=== PATIENT | female | born 2000 | race Caucasian/White ===

== ENCOUNTER → 2022-07-27 | Outpatient (CLI) | payer OTHER ==
[2022-07-27 14:54] LABS: BASO # 0.1 10^3/uL (0.0-0.2); BASO % 0.6 % (0.0-1.0); EOS # 0.1 10^3/uL (0.0-0.5); HEMATOCRIT 37.2 % (36.0-47.0); HEMOGLOBIN 11.5 g/dl (12.0-15.5); LYMPH # 2.6 10^3/uL (1.5-5.0); LYMPH % 32.5 % (24.0-44.0); MEAN CORPUSCULAR HEMOGLOBIN 22.3 pg (27.0-33.0); MEAN CORPUSCULAR HGB CONC 30.9 g/dl (32.0-36.5); MEAN CORPUSCULAR VOLUME 72.1 fl (80.0-96.0); MONO # 0.6 10^3/uL (0.0-0.8); NEUTROPHILS # 4.6 10^3/uL (1.5-8.5); NEUTROPHILS % 57.8 % (36.0-66.0); PLATELET COUNT, AUTOMATED 408 10^3/uL (150-450); RED BLOOD COUNT 5.16 10^6/uL (4.00-5.40)
[2022-07-27 15:11] LABS: INR 1.1; PARTIAL THROMBOPLASTIN TIME 28.2 SECONDS (24.8-34.2); PROTHROMBIN TIME 14.4 SECONDS (12.5-14.5)
[2022-07-27 15:19] LABS: TOTAL IRON BINDING CAPACITY 456 UG/DL (250-425)
[2022-07-27 15:20] LABS: ALBUMIN 3.5 G/DL (3.2-5.2); ALKALINE PHOSPHATASE 76 U/L (46-116); ALT/SGPT 50 U/L (7.0-40); AST/SGOT 41 U/L (<34); BILIRUBIN,TOTAL 0.3 MG/DL (0.3-1.2); BLOOD UREA NITROGEN 13 MG/DL (9-23); CALCIUM LEVEL 8.6 MG/DL (8.5-10.1); CARBON DIOXIDE LEVEL 27 MMOL/L (20-31); CHLORIDE LEVEL 105 MMOL/L (98-107); CREATININE FOR GFR 0.85 MG/DL (0.55-1.30); GLUCOSE, FASTING 88 MG/DL (60-100); IRON (FE) 21 UG/DL (50-170); PERCENT SATURATION 4.6 % (13.2-45.0); POTASSIUM SERUM 4.6 MMOL/L (3.5-5.1); SODIUM LEVEL 139 MMOL/L (136-145)
[2022-07-27 15:21] LABS: FREE T4 1.06 NG/DL (0.83-1.43); THYROID STIMULATING HORMONE 0.938 uIU/ML (0.48-4.17)
== END ==
LOC: M LAB 14:01
PROVIDERS: ATTEND Nurse Practitioner Adult Health
DX: R58 Hemorrhage, not elsewhere classified (principal); Z13.29 Encounter for screening for other suspected endocrine disorder

== ENCOUNTER 2022-08-03 12:42 | Outpatient (CLI) | payer OTHER ==
[2022-08-03 13:15] VITALS: BP 138/77; O2SAT 97
[2022-08-03] MEDS ORDERED: FERRIC CARBOXYMALTOSE INJ 750 MG in NS 250 ML (>50kg) IV ONE ×3 (13:30)
[2022-08-03] MEDS ORDERED: BCP PO (13:46)
[2022-08-03 14:45] VITALS: BP 126/76; O2SAT 98
== END 2022-08-03 14:45 ==
LOC: M INFU 12:42
PROVIDERS: ATTEND Nurse Practitioner Adult Health
DX: D50.9 Iron deficiency anemia, unspecified (principal)
CPT/HCPCS: 96365; J1439

== ENCOUNTER 2022-08-10 10:54 | Outpatient (CLI) | payer OTHER ==
[~2022-08-10] VITALS: Ht 165.1 cm; Wt 82.0 kg
[2022-08-10 12:57] VITALS: BP 130/68; O2SAT 100
[2022-08-10] MEDS ORDERED: NS 1,000 ML IV SCH (13:00)
[2022-08-10] MEDS ORDERED: FERRIC CARBOXYMALTOSE INJ 750 MG in NS 250 ML (>50kg) IV ONE ×3 (13:00)
[2022-08-10 14:07] VITALS: BP 127/87; O2SAT 99
== END 2022-08-10 14:10 | disposition home or self-care (01) ==
LOC: M INFU 10:54
PROVIDERS: ATTEND Nurse Practitioner Adult Health
DX: D50.9 Iron deficiency anemia, unspecified (principal); E07.9 Disorder of thyroid, unspecified
CPT/HCPCS: 76536; 96365; J1439

== ENCOUNTER → 2022-08-10 | Outpatient (CLI) | payer OTHER ==
[~2022-08-10] MED LIST: BCP PO
== END ==
LOC: M RAD 10:53
PROVIDERS: ATTEND Nurse Practitioner Adult Health
DX: E07.9 Disorder of thyroid, unspecified (principal)